=== PATIENT | male | born 1970 | race Caucasian/White ===

== ENCOUNTER → 2016-08-04 | Outpatient (CLI) | payer MEDICAID ==
[~2016-08-04] MED LIST: ACETAMINOPHEN-O1 TAB PO; GABAPENTIN 600600 MG PO; HCTZ/LISINOPRIL1 TA3 PO; LISINOPRIL 10MG10 MG PO; LISINOPRIL20 MG PO; LOPRESSOR 25MG.25 MG PO; MEDROL 4MG. DOSE4 MG PO; NOMEDS XX; NORCO 325 MG-101 TAB PO; NORCO 325 MG-51 TAB PO; PERCOCET 5/3251 EACH PO; SEPTRA DS 800 M1 TAB PO; TORADOL10 M2 PO; WELLBUTRIN 75MG75 MG PO; ZANTAC 300300 MG PO
[2016-08-04 15:40] LABS: AMPHETAMINES/METAMPHETAMINES NEGATIVE ng/mL (<1000)
[2016-08-14 12:36] LABS: Opiates Negative (Cutoff=100)
== END ==
LOC: LAB 13:50
PROVIDERS: Emergency Medicine
DX: Z79.899 Other long term (current) drug therapy (principal)

== ENCOUNTER → 2016-10-09 | Outpatient (CLI) | payer MEDICAID ==
[2016-10-09 15:35] LABS: AMPHETAMINES/METAMPHETAMINES NEGATIVE ng/mL (<1000)
[2016-10-16 06:40] LABS: Opiates Negative (Cutoff=100)
== END ==
LOC: LAB 14:40
PROVIDERS: Emergency Medicine
DX: Z79.899 Other long term (current) drug therapy (principal)

== ENCOUNTER → 2016-11-02 | Outpatient (CLI) | payer MEDICAID ==
[2016-11-02 15:32] LABS: AMPHETAMINES/METAMPHETAMINES NEGATIVE ng/mL (<1000)
--- NOTE | 2016-11-02 17:09 | RADIOLOGY REPORT PS360 ---
CT SINUS (MAX-FACIAL W/O CONT) CLINICAL INDICATION: CHRONIC MAXILLARY SINUSITIS ORDERING PHYSICIAN: Clarke Ferrell MD PATIENT AGE: 46 years COMPARISON: None TECHNIQUE:Axial, sagittal, and coronal images are generated and reviewed without contrast FINDINGS: There is mild mucosal thickening of the ethmoid sinuses bilaterally and the medial aspect of the right frontal sinus. Minimal mucosal thickening involves right maxillary sinus inferiorly and laterally. Ostiomeatal complexes are patent. There is a small left dallas bullosa. No air-fluid levels are evident. There is a defect in the floor of the right orbit and may be related to an old blowout fracture. This contains fat. The inferior aspect of the inferior rectus muscle is present at the defect but does not extend into the defect. No other orbital abnormalities are evident. There is a small amount fluid in right mastoid sinus. There is mild leftward nasal septal deviation in the mid aspect of the septum. IMPRESSION: 1. Mild ethmoid, right frontal, and right maxillary sinus disease 2. Old blowout fracture of the right floor of the orbit. 3. Mild leftward nasal septal deviation
[2016-11-08 04:39] LABS: Opiates Negative (Cutoff=100)
== END ==
LOC: LAB 13:38 → RAD 13:38
PROVIDERS: Emergency Medicine
DX: J32.0 Chronic maxillary sinusitis (principal); Z79.899 Other long term (current) drug therapy

== ENCOUNTER → 2016-11-16 | Outpatient (CLI) | payer MEDICAID ==
[2016-11-16 12:22] LABS: LYMPH % 28.9 % (10-50)
[2016-11-16 12:41] LABS: HEMOGLOBIN 17.6 g/dL (14.1-18.0)
[2016-11-16 14:41] LABS: BUN 12 mg/dL (7-18); GFR (ESTIMATED) 105 ML/MIN (>60)
== END ==
LOC: LAB 12:14
PROVIDERS: Otolaryngology
DX: J34.2 Deviated nasal septum (principal); Z01.810 Encounter for preprocedural cardiovascular examination; Z01.811 Encounter for preprocedural respiratory examination; Z01.812 Encounter for preprocedural laboratory examination

== ENCOUNTER → 2017-02-28 | Outpatient (CLI) | payer MEDICAID ==
[2017-02-28 16:55] LABS: AMPHETAMINES/METAMPHETAMINES NEGATIVE ng/mL (<1000)
[2017-03-08 03:37] LABS: Opiates Negative (Cutoff=100)
== END ==
LOC: LAB 15:42
PROVIDERS: Emergency Medicine
DX: Z79.899 Other long term (current) drug therapy (principal)

== ENCOUNTER → 2017-03-14 | Outpatient (CLI) | payer MEDICAID ==
--- NOTE | 2017-03-14 13:31 | RADIOLOGY REPORT PS360 ---
[facility] HEPATOBILIARY ([facility]) HISTORY: RUQ PAIN ORDERING PHYSICIAN: Shayne Pedroza MD PATIENT AGE: 46 years COMPARISON: None DOSE: 7.66 mCi technetium Choletec Ensure was used for fatty meal to stimulate gallbladder contraction. No pain reported with fatty meal. FINDINGS: Homogeneous activity is present within the hepatic parenchyma. Activity is present in the gallbladder by 10 minutes. Activity is present in the small bowel by during the fatty meal ingestion. The gallbladder ejection fraction is calculated to be 31 % The patient did not report pain or other symptoms during the fatty meal. IMPRESSION: 1. No evidence of common or cystic duct obstruction. 2. The gallbladder ejection fraction is slightly low at 31% with 35% being lower limits of normal
== END ==
LOC: RAD 10:30
DX: R10.11 Right upper quadrant pain (principal)
CPT/HCPCS: A9537

== ENCOUNTER → 2017-03-20 | Outpatient (CLI) | payer MEDICAID ==
[2017-03-20 11:27] LABS: HEMOGLOBIN 15.3 g/dL (14.1-18.0)
[2017-03-20 11:28] LABS: LYMPH # 2.1 K/mm3 (0.7-4.5); LYMPH % 23.1 % (10-50)
[2017-03-20 11:44] LABS: BUN 11 mg/dL (7-18)
[2017-03-20 12:10] LABS: GFR (ESTIMATED) 122 ML/MIN (>60)
== END ==
LOC: LAB 11:06
PROVIDERS: Surgery
DX: Z01.810 Encounter for preprocedural cardiovascular examination (principal); Z01.811 Encounter for preprocedural respiratory examination; Z01.812 Encounter for preprocedural laboratory examination; Z13.810 Encounter for screening for upper gastrointestinal disorder

== ENCOUNTER 2017-03-22 08:02 | Day surgery (SDC) | payer MEDICAID ==
[~2017-03-22] VITALS: Ht 190.5 cm; Wt 122.5 kg
--- NOTE | 2017-03-22 08:56 | Operative Note ---
Surgeon/Diagnoses Surgeon/Information Technology Security Analyst(s) Date of procedure: 03/22/17 Surgeon: MD Clinton Hutchinson Diagnoses Pre-op diagnosis: Epigastric pain RIGHT upper quadrant pain Gastroesophageal reflux Nausea and vomiting Post-op diagnosis Same as preoperative diagnoses, with the addition of the following: Gastritis and duodenitis Sliding hiatal hernia Likely gastroparesis Procedure Procedure Procedure: Esophagogastroduodenoscopy with biopsy Indications: JEFF TEMPLE is a 46 year-old Male with a history of intermittent nausea and episodic emesis. He also describes "significant reflux". He has "sharp pain" that is mostly in the epigastric region and somewhat in the RIGHT upper quadrant. Recent ultrasound revealed no significant abnormality. About a biliary scan revealed an ejection fraction of 31 percent. Findings: Gastroesophageal junction at 43 cm Small sliding hiatal hernia Moderate patchy gastritis and duodenitis Moderate amount of food particles within stomach consistent with possible gastroparesis Procedure Description: After informed consent was obtained, the patient was taken to the endoscopy suite. Monitored anesthesia care ensued after he was transferred to the LEFT lateral decubitus position. The gastroscope was advanced. The gastroesophageal junction was at 43 cm. The stomach was entered. Moderate amount of food particles remained in the stomach. Patchy gastritis was noted. Retroflexion revealed a small sliding hiatal hernia, but evaluation was somewhat limited secondary to poor gastric relaxation. The pylorus was intubated. Patchy inflammation within the duodenal bulb was also noted. Antral biopsies and duodenal bulb biopsies were obtained. The gastroscope was carefully removed and the patient was transferred to recovery. EBL (ml): 1 Anesthesia: Monitored anesthesia care Complications: No immediate Specimens: Antral biopsy Duodenal bulb biopsy Disposition Disposition: Stable to recovery from where he will be discharged home. He will follow up in one week. at 08
[2017-03-22 09:47] VITALS: BP 115/83
== END 2017-03-22 09:35 | disposition home or self-care (01) ==
LOC: SDC 08:02
PROVIDERS: Surgery
PROC: 0DB78ZX Excision of Stomach, Pylorus, Via Natural or Artificial Opening Endoscopic, Diagnostic (ICD-10-PCS; 2017-03-22)
PROC: 0DB98ZX Excision of Duodenum, Via Natural or Artificial Opening Endoscopic, Diagnostic (ICD-10-PCS; principal; 2017-03-22 10:00)
DX: K44.9 Diaphragmatic hernia without obstruction or gangrene (principal); K29.70 Gastritis, unspecified, without bleeding; K29.80 Duodenitis without bleeding; R10.13 Epigastric pain; K21.9 Gastro-esophageal reflux disease without esophagitis

== ENCOUNTER → 2017-03-28 | Outpatient (CLI) | payer MEDICAID ==
[2017-03-28 17:08] LABS: AMPHETAMINES/METAMPHETAMINES NEGATIVE ng/mL (<1000)
[2017-04-07 06:37] LABS: Opiates Negative (Cutoff=100)
== END ==
LOC: LAB 16:16
PROVIDERS: Emergency Medicine
DX: Z79.899 Other long term (current) drug therapy (principal)

== ENCOUNTER → 2017-04-10 | Outpatient (CLI) | payer MEDICAID ==
--- NOTE | 2017-04-10 13:39 | RADIOLOGY REPORT PS360 ---
[facility] GASTRIC EMPTYING(NUCLEAR) HISTORY: GASTROPARESIS ORDERING PHYSICIAN: ROCHELLE HUTCHINSON MD PATIENT AGE: 47 years COMPARISON: None. DOSE: 0.6 mCi technetium sulfur colloid in radio labeled meal. FINDINGS: One half emptying time is slightly prolonged at 102 minutes with normal being 60 +/- 30 minutes. There was some delay in gastric emptying beginning at 29 minutes into the exam. Only 21% of the gastric contents had emptied at 60 minutes. Images submitted show no obvious reflux IMPRESSION: Gastroparesis
== END ==
LOC: RAD 04-09 10:00
DX: K31.84 Gastroparesis (principal)
CPT/HCPCS: A9541

== ENCOUNTER → 2017-05-01 | Outpatient (CLI) | payer MEDICAID ==
[2017-05-01 14:53] LABS: BILIRUBIN, INDIRECT 0.15 mg/dL (0-0.9)
== END ==
LOC: LAB 12:32
PROVIDERS: Surgery
DX: K82.8 Other specified diseases of gallbladder (principal)

== ENCOUNTER 2017-05-11 06:14 | Day surgery (SDC) | payer MEDICAID ==
[~2017-05-11] VITALS: Ht 190.5 cm; Wt 122.5 kg
--- NOTE | 2017-05-11 08:26 | Operative Note ---
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 Findings: Fairly dense adhesions throughout the entire pericholecystic area Procedure Description: After informed consent was obtained, the patient was taken to the operating room and placed in the supine position. General anesthesia was induced and the patient's abdomen was prepped and draped in a sterile fashion. After infiltration with local anesthetic an infraumbilical incision was made. A Veress needle was placed in position. The abdomen was insufflated. A 5 mm optical trocar was placed in position. Under direct visualization, 2 additional 5 mm trocars were placed in the RIGHT upper quadrant. A 12 mm trocar was placed in the subxiphoid position. The gallbladder was elevated up and over the liver margin. Dense adhesions were noted around the entire pericholecystic region and careful dissection utilizing blunt dissection, sharp dissection, and harmonic sultana was utilized to take down these adhesions. The tissue around the cystic duct was carefully dissected. Clips were placed proximally and the duct was transected at the infundibulum utilizing harmonic sultana. Harmonic sultana were then utilized to remove the gallbladder from the liver margin. The gallbladder was placed in a retrieval bag and removed through the subxiphoid trocar site. The RIGHT upper quadrant was thoroughly irrigated. No active bleeding or bile leak was noted. The fascia at the subxiphoid trocar site was reapproximated utilizing the doug-close device. Pneumoperitoneum was released as the remaining trocars were removed. All wounds were irrigated and skin was closed with 4-0 Monocryl in a subcuticular fashion. Steri-Strips were applied and the patient's anesthetic agents were reversed. After extubation, the patient was transferred to recovery in stable condition. EBL (ml): 10 Anesthesia: GETA Complications: no immediate Specimens: gallbladder and contents Disposition Disposition: Stable to recovery from where he will be discharged home. He will follow up in 1 -2 weeks. at 0826
--- NOTE | 2017-05-11 08:41 | Anesthesia Record ---
Anesthesia Record Part II Discharge time: 906 Destination: Same day surgery PACU nurse assessment review? Yes Patient is: Stable Anesthesia complications? No at 0887
--- NOTE | 2017-05-11 08:41 | Anesthesia Record ---
Anesthesia Record Part I Total IV fluids: 500 EBL (ml): 10 Urine Output: 0 B/P: 97/48 % SaO2: 93 Pulse: 67 Resps: 18 Temp: 97.0 Patient is: Drowsy, Nasal O2, Stable Stable to PACU at: 0837 at 0840
[2017-05-11 11:10] VITALS: BP 149/86
== END 2017-05-11 10:55 | disposition home or self-care (01) ==
LOC: SDC 06:14
PROVIDERS: Surgery
PROC: 0FT44ZZ Resection of Gallbladder, Percutaneous Endoscopic Approach (ICD-10-PCS; principal; 2017-05-11 07:30)
DX: K82.8 Other specified diseases of gallbladder (principal); K81.1 Chronic cholecystitis
CPT/HCPCS: J0131; J2405; J2710

== ENCOUNTER → 2017-05-25 | Outpatient (CLI) | payer MEDICAID ==
[2017-05-25 14:56] LABS: AMPHETAMINES/METAMPHETAMINES NEGATIVE ng/mL (<1000)
== END ==
LOC: LAB 13:35
PROVIDERS: Emergency Medicine
DX: Z79.899 Other long term (current) drug therapy (principal)

== ENCOUNTER 2017-06-06 16:09 | Emergency (ER) | payer MEDICAID ==
[~2017-06-06] VITALS: Ht 190.5 cm; Wt 122.5 kg
[2017-06-06] MEDS ORDERED: PANTOPRAZOLE SO40 M1 PO (16:18)
[2017-06-06] MEDS ORDERED: GABAPENTIN800 MG PO (16:19)
--- OUTSIDE RECORDS SUMMARY | 2017-06-06 16:52 | External Medical Summary Rpt | CCD ---
Demographics Preferred Language Ivorian Marital Status Unknown Oriental Orthodox Affiliation Unknown Race Unknown Ethnic Group Unknown Author Author , EH AVENDAÑO Address Unknown Phone [email or web address] Immunization Name Date Rout CVX Reac Dose Comm Prov Is Faci e tion ent ider Refu lity Give sed n Tdap 04-2 Intr 115 999 Hist 1005 No 1005 , 3-20 amus oric 00 00 Adso 15 cula al rbed r Info rmat ion - Sour ce Unsp ecif ied
--- OUTSIDE RECORDS SUMMARY | 2017-06-06 16:52 | External Medical Summary Rpt | CCD ---
Author Author , JAROCHO AVENDAÑO Address Unknown Phone [email or web address] Purpose Continuity of Care Document - 11-02-2016 through 2016 Problems Code Diagnosis DOS Provider Status M48.06 SPINAL STENOSIS, LUMBAR REGION S93.409A SPRAIN OF UNSP LIGAMENT OF UNSPECIFIED ANKLE, INIT ENCNTR Results Labs Lab Lab Date Result Refere Interp Status Commen Order Detail nces retati t Range on Urine 9-analyte drugs of abuse screening (05-25-2017 11:00) Comment: Positive urine drug screen samples are stored for 7 days. Comment: Contact the Lab if confirmation of positives is needed. Urine NEGATIV <1000 complet ampheta 017 E ed mine 11:00 NEGATIV screeni E L ng test ng/mL - POSITIV <50 complet oxy 017 E ed delta-9 11:00 POSITIV E L tetrahy ng/mL drocann abinol Comment: This is an UNCONFIRMED result. This result is for medical Comment: purposes and/or treatment only. Phencyc = <25 complet lidine 017 NEGATIV ed measure 11:00 E ng/mL ment (mass/v olume) Opiates = <300 complet 017 POSITIV ed measure 11:00 E ng/mL ment (mass/v olume) Comment: This is an UNCONFIRMED result. This result is for medical Comment: purposes and/or treatment only. Methado = <300 complet ne 017 NEGATIV ed measure 11:00 E ng/mL ment (mass/v olume) Cocaine = <300 complet 017 NEGATIV ed measure 11:00 E ng/g ment (mass/v olume) Serum = 200 complet or 017 NEGATIV ng/mL ed plasma 11:00 E ng/mL benzodi azepine s measure m Urine = <200 complet barbitu 017 NEGATIV ed rates 11:00 E ng/mL measure ment by screen Drugs identified in Urine by Screen method (05-25-2017 11:00) Ampheta NEGATIV <1000 complet mine 017 E ed [Presen 11:00 ce] in Urine by Screen method POSITIV <50 Abnorma complet oxy 017 E l ed delta-9 11:00 tetrahy drocann abinol [Presen ce] in Unspeci fied specime n Liver function panel (05-01-2017 12:36) Serum = 3.5 3.4-5.0 complet or 017 gm/dL ed plasma 12:36 albumin measure ment (mas Serum = 69 46-116 complet or 017 U/L ed plasma 12:36 alkalin e phospha tase zeyad Bilirub < 0.05 0.0-0.2 complet in 017 mg/dL ed direct 12:36 Serum = 0.15 0-0.9 complet or 017 mg/dL ed plasma 12:36 indirec t bilirub in measu Serum = 0.2 0.2-1.0 complet or 017 mg/dL ed plasma 12:36 total bilirub in measure m Serum = 26 15-37 complet or 017 U/L ed plasma 12:36 asparta te aminotr ansfera ALT = 30 12-78 complet (SGPT) 017 U/L ed ser/misha 12:36 s Protein = 6.4 6.4-8.2 complet total 017 gm/dL ed ser/misha 12:36 s Urine 9-analyte drugs of abuse screening (04-27-2017 10:00) Comment: Positive urine drug screen samples are stored for 7 days. Comment: Contact the Lab if confirmation of positives is needed. Urine NEGATIV <1000 complet ampheta 017 E ed mine 10:00 NEGATIV screeni E L ng test ng/mL Urine = <200 complet barbitu 017 NEGATIV ed rates 10:00 E ng/mL measure ment by screen Serum = 200 complet or 017 NEGATIV ng/mL ed plasma 10:00 E ng/mL benzodi azepine s measure m Cocaine = <300 complet 017 NEGATIV ed measure 10:00 E ng/g ment (mass/v olume) Methado = <300 complet ne 017 NEGATIV ed measure 10:00 E ng/mL ment (mass/v olume) Opiates = <300 complet 017 NEGATIV ed measure 10:00 E ng/mL ment (mass/v olume) Phencyc = <25 complet lidine 017 NEGATIV ed measure 10:00 E ng/mL ment (mass/v olume) hydr POSITIV <50 complet oxy 017 E ed delta-9 10:00 POSITIV E L tetrahy ng/mL drocann abinol Comment: This is an UNCONFIRMED result. This result is for medical Comment: purposes and/or treatment only. Opiates and Oxycodone(GC/MS),U (04-27-2017 10:00) Oxycodo Positiv . complet ne/Oxym 017 e ed orph 10:00 Comment: Test includes Oxycodone and Oxymorphone Oxycodo Positiv . complet ne 017 e ed 10:00 Oxycodo 171 Cutoff= complet ne 017 ng/mL 100 ed (GC/MS) 10:00 Oxymorp Positiv . complet di 017 e ed 10:00 Oxymorp 1660 Cutoff= complet di 017 ng/mL 100 ed (GC/MS) 10:00 Comment: Performed at: - [facility] RT Comment: [address], [facility], [place] [id number] Comment: Financial Aid Advisor: Shayne Wilson MD, Phone: [phone] Opiates Negativ Cutoff= complet 017 e 100 ed 10:00 Comment: Opiate test includes Codeine, Morphine, Hydromorphone, Hydrocodone. Drugs identified in Urine by Screen method (04-27-2017 10:00) Ampheta NEGATIV <1000 complet mine 017 E ed [Presen 10:00 ce] in Urine by Screen method 2 POSITIV <50 Abnorma complet oxy 017 E l ed delta-9 10:00 tetrahy drocann abinol [Presen ce] in Unspeci fied specime n Opiates and Oxycodone(GC/MS),U (03-28-2017 14:00) Opiates --2 Negativ Cutoff= complet 017 e 100 ed 14:00 Comment: Opiate test includes Codeine, Morphine, Hydromorphone, Hydrocodone. Oxycodo 10-04-2 Positiv . complet ne/Oxym 017 e ed orph 14:00 Comment: Test includes Oxycodone and Oxymorphone Oxycodo 10-04-2 Positiv . complet ne 017 e ed 14:00 Oxycodo 10-04-2 145 Cutoff= complet ne 017 ng/mL 100 ed (GC/MS) 14:00 Oxymorp 10-04-2 Positiv . complet di 017 e ed 14:00 Oxymorp 10-04-2 380 Cutoff= complet di 017 ng/mL 100 ed (GC/MS) 14:00 Comment: Performed at: - [facility] Comment: [address], [facility], [place] [id number] Comment: Financial Aid Advisor: Shayne Wilson MD, Phone: [phone] Drugs identified in Urine by Screen method (03-28-2017 14:00) Ampheta NEGATIV <1000 complet mine 017 E ed [Presen 14:00 ce] in Urine by Screen method POSITIV <50 Abnorma complet oxy 017 E l ed delta-9 14:00 tetrahy drocann abinol [Presen ce] in Unspeci fied specime n Drugs identified in Urine by Screen method (02-28-2017 13:45) Ampheta NEGATIV <1000 complet mine 017 E ed [Presen 13:45 ce] in Urine by Screen method Hydr POSITIV <50 Abnorma complet oxy 017 E l ed delta-9 13:45 tetrahy drocann abinol [Presen ce] in Unspeci fied specime n Drugs identified in Urine by Screen method (12-27-2016 10:00) Ampheta NEGATIV <1000 complet mine 017 E ed [Presen 10:00 ce] in Urine by Screen method Hydr POSITIV <50 Abnorma complet oxy 017 E l ed delta-9 10:00 tetrahy drocann abinol [Presen ce] in Unspeci fied specime n Drugs identified in Urine by Screen method (11-28-2016 10:30) Ampheta NEGATIV <1000 complet mine 017 E ed [Presen 10:30 ce] in Urine by Screen method Hydr POSITIV <50 Abnorma complet oxy 017 E l ed delta-9 10:30 tetrahy drocann abinol [Presen ce] in Unspeci fied specime n
--- OUTSIDE RECORDS SUMMARY | 2017-06-06 16:52 | External Medical Summary Rpt | CCD ---
Author Author [employer] Organization [employer] Address Unknown Phone Unavailable Purpose Continuity of Care Document - through 2016
--- OUTSIDE RECORDS SUMMARY | 2017-06-06 16:52 | External Medical Summary Rpt | CCD ---
Author Author , JAROCHO AVENDAÑO Address Unknown Phone [email or web address] Purpose Continuity of Care Document - 11-02-2016 [...] (GC/MS) 10:00 Comment: Performed at: - [facility] RT Comment: [address], [facility], [place] [id number] Comment: Shank Skinner: Shayne Wilson MD, Phone: [phone] Opiates Negativ Cutoff= complet 017 e 100 [...] (GC/MS) 14:00 Comment: Performed at: - [facility] Comment: [address], [facility], [place] [id number] Comment: Shank Skinner: Shayne Wilson MD, Phone: [phone] Drugs identified in Urine by Screen method [...]
--- OUTSIDE RECORDS SUMMARY | 2017-06-06 16:52 | External Medical Summary Rpt | CCD ---
Demographics Preferred Language Djiboutian Marital Status Unknown Bahai Affiliation Unknown Race Unknown Ethnic Group Unknown Author Author , EH AVENDAÑO Address Unknown Phone [email or web address] Immunization Name Date Rout CVX Reac Dose Comm Prov Is Faci e tion ent ider Refu lity Give sed n Tdap 04-2 Intr 115 999 Hist 1005 No 1005 , 3-20 amus oric 00 00 Adso 15 cula al rbed r Info rmat ion - Sour ce Unsp ecif ied
--- OUTSIDE RECORDS SUMMARY | 2017-06-06 16:53 | External Medical Summary Rpt ---
Author Author JAROCHO Joshi, BLUEANALI Adea Organization [employer] Address Unknown Phone Unavailable Results Drugs identified in Urine by Screen method Observa Value Referen Units Interpr Notes Date tion ce etation Range Positive urine drug screen samples are stored for 7 days. Contact the Lab if confirmation of positives is needed. Ampheta NEGATIV <1000 ng/mL No No May 25 mine E informa informa 2017 [Presen tion in tion in 11:00 ce] in source source AM Urine data data by Screen method Barbitura <200 ng/mL No No May 25 svetlana informati informati 2017 [Mass/vol on in on in 11:00 AM ume] in source source Urine by data data Screen method Benzodiaz 200 ng/mL ng/mL No No May 25 epines informati informati 2017 [Mass/vol on in on in 11:00 AM ume] in source source Serum or data data Plasma by Screen method Cocaine <300 ng/g No No May 25 [Mass/vol informati informati 2016 ume] in on in on in 11:00 AM Unspecifi source source ed data data specimen Methadone <300 ng/mL No No May 25 informati informati 2016 [Mass/vol on in on in 11:00 AM ume] in source source Unspecifi data data ed specimen Opiates <300 ng/mL High This is May 25 [Mass/vol an 2016 ume] in UNCONFIRM 11:00 AM Unspecifi ED ed result. specimen This result is for medicalpu rposes and/or treatment only. Phencycli <25 ng/mL No No Dec dine informati informati 2016 [Mass/vol on in on in 11:00 AM ume] in source source Unspecifi data data ed specimen 11-Hydr POSITIV <50 ng/mL Abnorma This is Dec oxy E l an 2017 delta-9 UNCONFI 11:00 RMED AM tetrahy result. drocann This abinol result [Presen is for ce] in medical Unspeci purpose fied s specime and/or n treatme nt only. Opiates and Oxycodone(GC/MS),U Observa Value Referen Units Interpr Notes Date tion ce etation Range Oxycodo Positiv . No Abnorma Test Nov 3 ne/Oxym e informa l include 2017 orph tion in s 11:00 source Oxycodo AM data ne and Oxymorp di Oxycodo Positiv . No Abnorma No Nov 3 ne e informa l informa 2017 tion in tion in 11:00 source source AM data data Oxycodo 171 Cutoff= ng/mL No No Nov 3 ne 100 informa informa 2017 (GC/MS) tion in tion in 11:00 source source AM data data Oxymorp Positiv . No Abnorma No Apr 3 di e informa l informa 2017 tion in tion in 11:00 source source AM data data [facility] 1660 Cutoff= ng/mL No Perform Nov 3 di 100 informa ed at: 2017 (GC/MS) tion in UI - 11:00 source [facility] AM data [facility] [id number] [place], [place] [id number]Lab Directo r: Shayne Wilson MD, Phone: [phone] Opiates Negativ Cutoff= No No Opiate Nov 3 e 100 informa informa test 2017 tion in tion in include 11:00 source source s AM data data Codeine , Morphin e, Hydromo rphone, Hydroco done. Drugs identified in Urine by Screen method Observa Value Referen Units Interpr Notes Date tion ce etation Range Positive urine drug screen samples are stored for 7 days. Contact the Lab if confirmation of positives is needed. Ampheta NEGATIV <1000 ng/mL No No Apr 3 mine E informa informa 2017 [Presen tion in tion in 10:00 ce] in source source AM Urine data data by Screen method Barbitura <200 ng/mL No No Apr 3 svetlana informati informati 2017 [Mass/vol on in on in 10:00 AM ume] in source source Urine by data data Screen method Benzodiaz 200 ng/mL ng/mL No No Apr 3 epines informati informati 2017 [Mass/vol on in on in 10:00 AM ume] in source source Serum or data data Plasma by Screen method Cocaine <300 ng/g No No Nov 3 [Mass/vol informati informati 2017 ume] in on in on in 10:00 AM Unspecifi source source ed data data specimen Methadone <300 ng/mL No No Nov 3 informati informati 2016 [Mass/vol on in on in 10:00 AM ume] in source source Unspecifi data data ed specimen Opiates <300 ng/mL No No Nov 3 [Mass/vol informati informati 2017 ume] in on in on in 10:00 AM Unspecifi source source ed data data specimen Phencycli <25 ng/mL No No Nov 3 dine informati informati 2016 [Mass/vol on in on in 10:00 AM ume] in source source Unspecifi data data ed specimen 11-Hydr POSITIV <50 ng/mL Abnorma This is Apr 27 oxy E l an 2017 delta-9 UNCONFI 10:00 RMED AM tetrahy result. [email or web address] This abinol result [Presen is for ce] in medical Unspeci purpose fied s specime and/or n treatme nt only. Opiates and Oxycodone(GC/MS),U Observa Value Referen Units Interpr Notes Date tion ce etation Range Oxycodo Positiv . No Abnorma Test Mar 28 ne/Oxym e informa l include 2017 orph tion in s 2:00 PM source Oxycodo data ne and Oxymorp di Oxycodo Positiv . No Abnorma No Mar 28 ne e informa l informa 2017 tion in tion in 2:00 PM source source data data Oxycodo 145 Cutoff= ng/mL No No Mar 28 ne 100 informa informa 2017 (GC/MS) tion in tion in 2:00 PM source source data data Oxymorp Positiv . No Abnorma No Mar 28 di e informa l informa 2017 tion in tion in 2:00 PM source source data data [facility] 380 Cutoff= ng/mL No Perform Mar 28 di 100 informa ed at: 2017 (GC/MS) tion in UI - 2:00 PM source [facility] data [id number] [facility], [place], [place] [id number]Lab Directo r: Shayne Wilson MD, Phone: [phone] Opiates Negativ Cutoff= No No Opiate Mar 28 e 100 informa informa test 2017 tion in tion in include 2:00 PM source source s data data Codeine , Morphin e, Hydromo rphone, Hydroco done. Drugs identified in Urine by Screen method Observa Value Referen Units Interpr Notes Date tion ce etation Range Positive urine drug screen samples are stored for 7 days. Contact the Lab if confirmation of positives is needed. Ampheta NEGATIV <1000 ng/mL No No Mar 28 mine E informa informa 2016 [Presen tion in tion in 2:00 PM ce] in source source Urine data data by Screen method Barbitura <200 ng/mL No No Mar 28 svetlana informati informati 2016 2:00 [Mass/vol on in on in PM ume] in source source Urine by data data Screen method Benzodiaz 200 ng/mL ng/mL No No Mar 28 epines informati informati 2016 2:00 [Mass/vol on in on in PM ume] in source source Serum or data data Plasma by Screen method Cocaine <300 ng/g No No Mar 28 [Mass/vol informati informati 2017 2:00 ume] in on in on in PM Unspecifi source source ed data data specimen Methadone <300 ng/mL No No Mar 28 informati informati 2016 2:00 [Mass/vol on in on in PM ume] in source source Unspecifi data data ed specimen Opiates <300 ng/mL No No Mar 28 [Mass/vol informati informati 2017 2:00 ume] in on in on in PM Unspecifi source source ed data data specimen Phencycli <25 ng/mL No No Mar 28 dine informati informati 2016 2:00 [Mass/vol on in on in PM ume] in source source Unspecifi data data ed specimen 11-Hydr POSITIV <50 ng/mL Abnorma This is Mar 28 oxy E l an 2017 delta-9 UNCONFI 2:00 PM RMED tetrahy result. [email or web address] This abinol result [Presen is for ce] in medical Unspeci purpose fied s specime and/or n treatme nt only. Comprehensive metabolic 2000 panel in Serum or Plasma Observa Value Referen Units Interpr Notes Date tion ce etation Range Albumin/G 1.1 - 1.8 No Low No Sep 26 lobulin informati informati 2016 [Mass on in on in 11:08 AM ratio] in source source Serum or data data Plasma Albumin 3.4 - 5.0 gm/dL Normal No Sep 26 [Mass/vol informati 2017 ume] in on in 11:08 AM Serum or source Plasma data Alkaline 46 - 116 U/L Normal No Sep 26 phosphata informati 2017 se on in 11:08 AM [Enzymati source c data activity/ volume] in Serum or Plasma Bilirubin 0.2 - 1.0 mg/dL Normal No Sep 26 .total informati 2017 [Mass/vol on in 11:08 AM ume] in source Serum or data Plasma Urea 7 - 18 mg/dL Normal No Sep 26 nitrogen informati 2017 [Mass/vol on in 11:08 AM ume] in source Serum or data Plasma Calcium 8.5 - mg/dL Normal No Sep 26 [Mass/vol 10.1 informati 2017 ume] in on in 11:08 AM Serum or source Plasma data Chloride 98 - 107 mmoL/L Normal No Sep 26 [Moles/vo informati 2017 lume] in on in 11:08 AM Serum or source Plasma data Carbon 21.0 - mmoL/L Normal No Sep 26 dioxide, 32.0 informati 2017 total on in 11:08 AM [Moles/vo source lume] in data Serum or Plasma Creatinin 0.70 - mg/dL Low No Sep 26 e 1.30 informati 2017 [Mass/vol on in 11:08 AM ume] in source Serum or data Plasma Estimated >60 ML/MIN No REFERENCE Sep 26 informati RANGE: 2017 glomerula on in >60 11:08 AM r source ML/MIN/1. filtratio data 73 SQUARE n rate METERSIf (GF this patient is -A merican, then multiply theresult by 1.210. Globulin 1.3 - 3.2 gm/dL High No Sep 26 [Mass/vol informati 2017 ume] in on in 11:08 AM Serum source data Glucose 74 - 106 mg/dL High No Sep 26 [Mass/vol informati 2017 ume] in on in 11:08 AM Serum or source Plasma data Potassium 3.5 - 5.1 mmoL/L Normal No Sep 26 informati 2017 [Moles/vo on in 11:08 AM lume] in source Serum or data Plasma Sodium 136 - 145 mmoL/L Normal No Sep 26 [Moles/vo informati 2017 lume] in on in 11:08 AM Serum or source Plasma data Aspartate 15 - 37 U/L Normal No Sep 26 inform2016 aminotran on in 11:08 AM sferase source [Enzymati data c activity/ volume] in Serum or Plasma Alanine 12 - 78 U/L Normal No Sep 26 aminotran inform2016 sferase on in 11:08 AM [Enzymati source c data activity/ volume] in Serum or Plasma Protein 6.4 - 8.2 gm/dL Normal No Sep 26 [Mass/vol informati 2016 ume] in on in 11:08 AM Serum or source Plasma data CBC W Auto Differential panel in Blood Observa Value Referen Units Interpr Notes Date tion ce etation Range Granulocy 1.3 - 8.0 K/mm3 Normal No Sep 26 svetlana inform2016 [#/volume on in 11:08 AM ] in source Blood by data Automated count Granulocy 37.0 - % Normal No Sep svetlana/100 80.0 inform2016 leukocyte on in 11:08 AM s in source Blood by data Automated count Hematocri 42.0 - % Normal No Sep t [Volume 52.0 informati 2016 on in 11:08 AM Fraction] source of Blood data Hemoglobi 14.1 - g/dL Normal No Sep n 18.0 informati 2016 [Mass/vol on in 11:08 AM ume] in source Blood data Lymphocyt 0.7 - 4.5 K/mm3 Normal No Sep 26 es informati 2016 [#/volume on in 11:08 AM ] in source Unspecifi data ed specimen by Automated count Lymphocyt 10 - 50 % Normal No Sep es informati 2016 [#/volume on in 11:08 AM ] in source Unspecifi data ed specimen by Automated count Erythrocy 27 - 31.2 pg Normal No Sep 26 te mean informati 2016 corpuscul on in 11:08 AM ar source hemoglobi data n [Entitic mass] Erythrocy 31.8 - g/dl Normal No Sep 26 te mean 35.4 informati 2016 corpuscul on in 11:08 AM ar source hemoglobi data n concentra tion [Mass/vol ume] by Automated count Erythrocy 82.2 - fL Normal No Sep 26 te mean 97.8 informati 2016 corpuscul on in 11:08 AM ar volume source [Entitic data volume] by Automated count Monocytes 0.1 - 1.0 K/mm3 Normal No Sep 26 informati 2017 [#/volume on in 11:08 AM ] in source Blood by data Automated count Monocytes 1.7 - 9.3 % Normal No Sep 26 /100 informati 2017 leukocyte on in 11:08 AM s in source Blood by data Automated count Platelets 142 - 424 K/mm3 Normal No Sep 26 informati 2016 [#/volume on in 11:08 AM ] in source Blood data Erythrocy 4.6 - 6.2 M/mm3 Normal No Sep 26 svetlana informati 2017 [#/volume on in 11:08 AM ] in source Amniotic data fluid Erythrocy 11.5 - % Normal No Sep te 17.5 informati 2017 distribut on in 11:08 AM ion width source [Entitic data volume] by Automated count Leukocyte 4.8 - K/mm3 Normal No Sep 26 s 10.8 informati 2016 [#/volume on in 11:08 AM ] in source Blood data Opiates and Oxycodone(GC/MS),U Observa Value Referen Units Interpr Notes Date tion ce etation Range Oxycodo Positiv . No Abnorma Test Sep 6 ne/Oxym e informa l include 2017 orph tion in s 1:45 PM source Oxycodo data ne and Oxymorp di Oxycodo Negativ Cutoff= No No No Sep 6 ne e 100 informa informa informa 2017 tion in tion in tion in 1:45 PM source source source data data data [facility] Positiv . No Abnorma No Sep 6 di e informa l informa 2017 tion in tion in 1:45 PM source source data data [facility] 1864 Cutoff= ng/mL No Perform Sep 6 di 100 informa ed at: 2017 (GC/MS) tion in UI - 1:45 PM source [facility] data [id number] [facility], [place], [place] [id number]Lab Directo r: Shayne Wilson MD, Phone: [phone] Opiates Negativ Cutoff= No No Opiate Sep 6 e 100 informa informa test 2017 tion in tion in include 1:45 PM source source s data data Codeine , Morphin e, Hydromo rphone, Hydroco done. Drugs identified in Urine by Screen method Observa Value Referen Units Interpr Notes Date tion ce etation Range Positive urine drug screen samples are stored for 7 days. Contact the Lab if confirmation of positives is needed. Ampheta NEGATIV <1000 ng/mL No No Sep 6 mine E informa informa 2016 [Presen tion in tion in 1:45 PM ce] in source source Urine data data by Screen method Barbitura <200 ng/mL No No Sep 6 svetlana informati informati 2016 1:45 [Mass/vol on in on in PM ume] in source source Urine by data data Screen method Benzodiaz 200 ng/mL ng/mL No No Sep 6 epines informati informati 2017 1:45 [Mass/vol on in on in PM ume] in source source Serum or data data Plasma by Screen method Cocaine <300 ng/g No No Sep 6 [Mass/vol informati informati 2017 1:45 ume] in on in on in PM Unspecifi source source ed data data specimen Methadone <300 ng/mL No No Sep 6 informati informati 2017 1:45 [Mass/vol on in on in PM ume] in source source Unspecifi data data ed specimen Opiates <300 ng/mL No No Sep 6 [Mass/vol informati informati 2017 1:45 ume] in on in on in PM Unspecifi source source ed data data specimen Phencycli <25 ng/mL No No Sep 6 dine informati informati 2016 1:45 [Mass/vol on in on in PM ume] in source source Unspecifi data data ed specimen 11-Hydr POSITIV <50 ng/mL Abnorma This is Feb 28 oxy E l an 2017 delta-9 UNCONFI 1:45 PM RMED tetrahy result. drocann This abinol result [Presen is for ce] in medical Unspeci purpose fied s specime and/or n treatme nt only. Opiates and Oxycodone(GC/MS),U Observa Value Referen Units Interpr Notes Date tion ce etation Range Oxycodo Positiv . No Abnorma Test Dec 27 ne/Oxym e informa l include 2017 orph tion in s 10:00 source Oxycodo AM data ne and Oxymorp di Oxycodo Negativ Cutoff= No No No Dec 27 ne e 100 informa informa informa 2017 tion in tion in tion in 10:00 source source source AM data data data Oxymorp Positiv . No Abnorma No Dec 27 di e informa l informa 2017 tion in tion in 10:00 source source AM data data [facility] 366 Cutoff= ng/mL No Perform Dec 27 di 100 informa ed at: 2017 (GC/MS) tion in UI - 10:00 source [facility] AM data [id number] [facility], [place], [place] [id number]Lab Directo r: Shayne Wilson MD, Phone: [phone] Opiates Negativ Cutoff= No No Opiate Dec 27 e 100 informa informa test 2017 tion in tion in include 10:00 source source s AM data data Codeine , Morphin e, Hydromo rphone, Hydroco done. Drugs identified in Urine by Screen method Observa Value Referen Units Interpr Notes Date tion ce etation Range Positive urine drug screen samples are stored for 7 days. Contact the Lab if confirmation of positives is needed. Ampheta NEGATIV <1000 ng/mL No No Dec 27 mine E informa informa 2017 [Presen tion in tion in 10:00 ce] in source source AM Urine data data by Screen method Barbitura <200 ng/mL No No Dec 27 svetlana informati informati 2016 [Mass/vol on in on in 10:00 AM ume] in source source Urine by data data Screen method Benzodiaz 200 ng/mL ng/mL No No Dec 27 epines informati informati 2016 [Mass/vol on in on in 10:00 AM ume] in source source Serum or data data Plasma by Screen method Cocaine <300 ng/g No No Dec 27 [Mass/vol informati informati 2016 ume] in on in on in 10:00 AM Unspecifi source source ed data data specimen Methadone <300 ng/mL No No Dec 27 informati informati 2017 [Mass/vol on in on in 10:00 AM ume] in source source Unspecifi data data ed specimen Opiates <300 ng/mL No No Dec 27 [Mass/vol informati informati 2016 ume] in on in on in 10:00 AM Unspecifi source source ed data data specimen Phencycli <25 ng/mL No No Dec 27 dine informati informati 2017 [Mass/vol on in on in 10:00 AM ume] in source source Unspecifi data data ed specimen 11-Hydr POSITIV <50 ng/mL Abnorma This is Dec 27 oxy E l an 2017 delta-9 UNCONFI 10:00 RMED AM tetrahy result. drocann This abinol result [Presen is for ce] in medical Unspeci purpose fied s specime and/or n treatme nt only. Opiates and Oxycodone(GC/MS),U Observa Value Referen Units Interpr Notes Date tion ce etation Range Oxycodo Positiv . No Abnorma Test Nov 28 ne/Oxym e informa l include 2017 orph tion in s 10:30 source Oxycodo AM data ne and Oxymorp di Oxycodo Positiv . No Abnorma No Nov 28 ne e informa l informa 2017 tion in tion in 10:30 source source AM data data Oxycodo 160 Cutoff= ng/mL No No Nov 28 ne 100 informa informa 2017 (GC/MS) tion in tion in 10:30 source source AM data data [facility] Positiv . No Abnorma No Nov 28 di e informa l informa 2017 tion in tion in 10:30 source source AM data data [facility] 187 Cutoff= ng/mL No Perform Nov 28 di 100 informa ed at: 2017 (GC/MS) tion in UI - 10:30 source [facility] AM data [id number] [facility], [place], [place] [id number]Lab Directo r: Shayne Wilson MD, Phone: [phone] Opiates Negativ Cutoff= No No Opiate Nov 28 e 100 informa informa test 2017 tion in tion in include 10:30 source source s AM data data Codeine , Morphin e, Hydromo rphone, Hydroco done. Drugs identified in Urine by Screen method Observa Value Referen Units Interpr Notes Date tion ce etation Range Positive urine drug screen samples are stored for 7 days. Contact the Lab if confirmation of positives is needed. Ampheta NEGATIV <1000 ng/mL No No Nov 28 mine E informa informa 2017 [Presen tion in tion in 10:30 ce] in source source AM Urine data data by Screen method Barbitura <200 ng/mL No No Nav 6 svetlana informati informati 2016 [Mass/vol on in on in 10:30 AM ume] in source source Urine by data data Screen method Benzodiaz 200 ng/mL ng/mL No No Nov 28 epines informati informati 2016 [Mass/vol on in on in 10:30 AM ume] in source source Serum or data data Plasma by Screen method Cocaine <300 ng/g No No Nov 28 [Mass/vol informati informati 2016 ume] in on in on in 10:30 AM Unspecifi source source ed data data specimen Methadone <300 ng/mL No No Nov 28 informati informati 2016 [Mass/vol on in on in 10:30 AM ume] in source source Unspecifi data data ed specimen Opiates <300 ng/mL No No Nov 28 [Mass/vol informati informati 2016 ume] in on in on in 10:30 AM Unspecifi source source ed data data specimen Phencycli <25 ng/mL No No Nov 28 dine informati informati 2016 [Mass/vol on in on in 10:30 AM ume] in source source Unspecifi data data ed specimen 11-Hydr POSITIV <50 ng/mL Abnorma This is Nov 28 oxy E l an 2017 delta-9 UNCONFI 10:30 RMED AM tetrahy result. [email or web address] This abinol result [Presen is for ce] in medical Unspeci purpose fied s specime and/or n treatme nt only. Basic metabolic panel in Blood Observa Value Referen Units Interpr Notes Date tion ce etation Range Urea 7 - 18 mg/dL Normal No November 16 nitrogen informati 2016 [Mass/vol on in 12:15 PM ume] in source Serum or data Plasma Calcium 8.5 - mg/dL Normal No November 16 [Mass/vol 10.1 informati 2016 ume] in on in 12: PM Serum or source Plasma data Chloride 98 - 107 mmoL/L Normal No November 16 [Moles/vo informati 2016 lume] in on in 12:15 PM Serum or source Plasma data Carbon 21.0 - mmoL/L Normal No November 16 dioxide, 32.0 informati 2016 total on in 12:15 PM [Moles/vo source lume] in data Serum or Plasma Creatinin 0.70 - mg/dL Normal No May 25 e 1.30 informati 2016 [Mass/vol on in 12:15 PM ume] in source Serum or data Plasma Estimated >60 ML/MIN No REFERENCE November 16 informati RANGE: 2017 glomerula on in >60 12:15 PM r source ML/MIN/1. filtratio data 73 SQUARE n rate METERSIf (GF this patient is -A merican, then multiply theresult by 1.210. Glucose 74 - 106 mg/dL Normal No November 16 [Mass/vol informati 2016 ume] in on in 12:15 PM Serum or source Plasma data Potassium 3.5 - 5.1 mmoL/L Normal No November 16 inform2016 [Moles/vo on in 12:15 PM lume] in source Serum or data Plasma Sodium 136 - 145 mmoL/L Normal No November 16 [Moles/vo informati 2016 lume] in on in 12:15 PM Serum or source Plasma data CBC W Auto Differential panel in Blood Observa Value Referen Units Interpr Notes Date tion ce etation Range Basophils 0 - 0.2 K/MM3 Normal No November 16 inform2016 [#/volume on in 12:15 PM ] in source Blood by data Automated count Basophils 0.1 - 2.0 % Normal No November 16 /100 2016 leukocyte on in 12:15 PM s in source Blood by data Automated count Eosinophi 0.0 - 0.4 K/mm3 High No November 16 ls ati 2016 [#/volume on in 12:15 PM ] in source Blood by data Automated count Eosinophi 0.1 - % Normal No November 16 ls/100 12.0 2016 leukocyte on in 12:15 PM s in source Blood by data Automated count Granulocy 1.3 - 8.0 K/mm3 Normal No November 16 svetlana 2016 [#/volume on in 12:15 PM ] in source Blood by data Automated count Granulocy 37.0 - % Normal No November 16 svetlana/100 80.0 2016 leukocyte on in 12:15 PM s in source Blood by data Automated count Hematocri 42.0 - % High No November 16 t [Volume 52.0 informati 2016 on in 12:15 PM Fraction] source of Blood data Hemoglobi 14.1 - g/dL No November 16 n 18.0 informati informati 2016 [Mass/vol on in on in 12:15 PM ume] in source source Blood data data Lymphocyt 0.7 - 4.5 K/mm3 Normal No November 16 es informati 2016 [#/volume on in 12:15 PM ] in source Unspecifi data ed specimen by Automated count Lymphocyt 10 - 50 % Normal No November 16 es informati 2016 [#/volume on in 12:15 PM ] in source Unspecifi data ed specimen by Automated count Erythrocy 27 - 31.2 pg High No November 16 te mean 2016 corpuscul on in 12:15 PM ar source hemoglobi data n [Entitic mass] Erythrocy 31.8 - g/dl Normal No November 16 te mean 35.4 2016 corpuscul on in 12:15 PM ar source hemoglobi data n concentra tion [Mass/vol ume] by Automated count Erythrocy 82.2 - fl Normal No November 16 te mean 97.8 2016 corpuscul on in 12:15 PM ar volume source [Entitic data volume] by Automated count Monocytes 0.1 - 1.0 K/mm3 Normal No November 16 inform2016 [#/volume on in 12:15 PM ] in source Blood by data Automated count Monocytes 1.7 - 9.3 % Normal No November 16 /100 2016 leukocyte on in 12:15 PM s in source Blood by data Automated count Platelet 7.4 - fl Low No November 16 mean 10.4 2016 volume on in 12:15 PM [Entitic source volume] data in Blood by Automated count Platelets 142 - 424 K/mm3 Normal No November 16 inform2016 [#/volume on in 12:15 PM ] in source Blood data Erythrocy 4.6 - 6.2 M/mm3 Normal No November 16 svetlana informati 2016 [#/volume on in 12:15 PM ] in source Amniotic data fluid Erythrocy 11.5 - % Normal No November 16 te 17.5 informati 2016 distribut on in 12:15 PM ion width source [Entitic data volume] by Automated count Leukocyte 4.8 - K/MM3 Normal No November 16 s 10.8 informati 2016 [#/volume on in 12:15 PM ] in source Blood data Opiates and Oxycodone(GC/MS),U Observa Value Referen Units Interpr Notes Date tion ce etation Range Oxycodo Positiv . No Abnorma Test November 02 ne/Oxym e informa l include 2017 orph tion in s 1:46 PM source Oxycodo data ne and Oxymorp di Oxycodo Positiv . No Abnorma No November 02 ne e informa l informa 2017 tion in tion in 1:46 PM source source data data Oxycodo 233 Cutoff= ng/mL No No November 02 ne 100 informa informa 2017 (GC/MS) tion in tion in 1:46 PM source source data data Ox[facility]orp Positiv . No Abnorma No November 02 di e informa l informa 2017 tion in tion in 1:46 PM source source data data [facility] 1350 Cutoff= ng/mL No Perform November 02 di 100 informa ed at: 2017 (GC/MS) tion in UI - 1:46 PM source [facility] data [facility] [id number] [place], [place] [id number] Directo r: Shayne Wilson MD, Phone: [phone] Opiates Negativ Cutoff= No No Opiate November 02 e 100 informa informa test 2017 tion in tion in include 1:46 PM source source s data data Codeine , Morphin e, Hydromo rphone, Hydroco done.
--- OUTSIDE RECORDS SUMMARY | 2017-06-06 16:53 | External Medical Summary Rpt ---
Author Author JAR[employer] Joshi, BLUEANALI Beisen Organization [employer] Address Unknown Phone Unavailable [...] - 11:00 source [facility] AM data [facility] [id number] [place], [place] [id number]Lab Directo r: Shayne Wilson MD, Phone: [phone] Opiates Negativ Cutoff= No No Opiate Nov [...] - 2:00 PM source [facility] data [id number] [facility], [place], [place] [id number]Lab Directo r: Shayne Wilson MD, Phone: [phone] Opiates Negativ Cutoff= No No Opiate Mar [...] - 1:45 PM source [facility] data [address] [id number] [facility], [place], [place] [id number] 53Lab Directo r: Shayne Wilson MD, Phone: [phone] Opiates Negativ Cutoff= No No Opiate Sep [...] - 10:00 source [facility] AM data [id number] [facility], [place], [place] [id number] 53Lab Directo r: Shayne Wilson MD, Phone: [phone] Opiates Negativ Cutoff= No No Opiate Dec [...] - 10:30 source [facility] AM data [id number] [facility], [place], [place] [id number] 53Lab Directo r: Shayne Wilson MD, Phone: [phone] Opiates Negativ Cutoff= No No Opiate Nov [...] PM source Oxycodo data ne and [employer] id Oxycodo Positiv . No Abnorma No November [...] - 1:46 PM source [facility] data [facility] [id number] [place], [place] [id number] 53Lab Directo r: Shayne Wilson MD, Phone: [phone] Opiates Negativ Cutoff= No No Opiate November 02 e 100 informa informa test 2017 tion in tion in include 1:46 PM source source s data data Codeine , Morphin e, Hydromo rphone, Hydroco done.
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
[2017-06-06 17:57] VITALS: BP 127/90
== END 2017-06-06 18:00 | disposition home or self-care (01) ==
LOC: ER 16:09
DX: S16.1XXA Strain of muscle, fascia and tendon at neck level, initial encounter (principal); V89.2XXA Person injured in unspecified motor-vehicle accident, traffic, initial encounter; I10 Essential (primary) hypertension; F17.210 Nicotine dependence, cigarettes, uncomplicated